=== PATIENT | male | born 1995 | race Caucasian/White ===

== ENCOUNTER 2017-06-27 20:55 | Emergency (ER) | payer BC ==
[2017-06-27 21:00] VITALS: RESP 16; TEMP 98.1; O2SAT 97
--- NOTE | 2017-06-27 21:25 | EDPHY ---
H & P Stated Complaint: ETOH - Personal History Current Tetanus/Diphtheria Vaccine: Yes Current Tetanus Diphtheria and Acellular Pertussis (TDAP): Yes - Medical/Surgical History Hx Asthma: No Hx Chronic Respiratory Disease: No Hx Diabetes: No Hx Cardiac Disease: No Hx Renal Disease: No Hx Cirrhosis: No Hx Alcoholism: No Hx HIV/AIDS: No Hx Splenectomy or Spleen Trauma: No Other PMH: ADHD - Social History Smoking Status: Never smoked Time Seen by Provider: 06/27/17 21:09 HPI/ROS: CHIEF COMPLAINT: "I'm drunk" HISTORY OF PRESENT ILLNESS: 21-year-old male arrives via ambulance after an [employer] business intelligence manager called 911 over concerns about the patient's ability to ambulate safely and he was getting off a bus. When I enter the room his sober girlfriend in sober friends are here to pick him up. States that he has been drinking alcohol day. No complaints of pain. No trauma. No fall. No headache. PRIMARY CARE PROVIDER: REVIEW OF SYSTEMS: A ten point review of systems was performed and is negative with the exception of the items mentioned in the HPI PAST MEDICAL/SURGICAL HISTORY: no anticoagulant use, no relevant medical/ surgical history SOCIAL HISTORY: Positive alcohol use today PHYSICAL EXAM 1) GENERAL: Well-developed, well-nourished, alert and oriented. Appears to be in no acute distress. Answering questions appropriately. 2) HEAD: Normocephalic, atraumatic 3) HEENT: Pupils equal, round, reactive to light bilaterally. Negative Horners. Nasopharynx, oropharynx, clear. No deformity or angulation of nose. No septal hematoma. No rhinorrhea. No oral trauma. Ears bilaterally with normal tympanic membranes. No hemotympanum. No fluid or blood in the external auditory canal. No raccoon eyes. No Torres sign. T 4) NECK: No cervical collar is on. Posterior cervical spine is nontender, no stepoff, no effusion. Full range of motion which does not elicit any midline cervical spine pain, no posterior midline tenderness, no step-off. ] 5) LUNGS: Clear to auscultation bilaterally, no wheezes, no rhonchi, no retractions. No obvious signs of trauma. No chest wall pain. No flaring, no grunting. Moving symmetrically. No crepitus. 6) HEART: Regular rate and rhythm, 7) ABDOMEN: No guarding, no rebound, no focal tenderness, no peritoneal signs, no signs of trauma, no ecchymosis 8) MUSCULOSKELETAL: Moving all extremities, no focal areas of tenderness, no obvious trauma. 9) BACK: No midline vertebral tenderness, no fluctuance, no step-off, no obvious trauma, no visual or palpable abnormality. 10) SKIN: No laceration. No abrasion DIFFERENTIAL DIAGNOSIS: [In no particular orderincluding but not limited to hypoglycemia, infectious process, electrolyte abnormality, head injury and intoxicants. (Trent Donaldson) Constitutional: Initial Vital Signs Temperature (C) 36.7 C 06/27/17 20:59 Heart Rate 89 06/27/17 20:59 Respiratory Rate 16 06/27/17 20:59 Blood Pressure 116/82 H 06/27/17 20:59 O2 Sat (%) 97 06/27/17 20:59 O2 Delivery Mode Room Air Allergies/Adverse Reactions: Milk Containing Products [dairy] Allergy (Verified 06/27/17 20:58) Home Medications: Medication Instructions Recorded Adderall 10 MG (*) 06/27/17 Ambien 06/27/17 Medical Decision Making ED Course/Re-evaluation: At 9:23 p.m. the patient has ambulated without assistance, clear speech pattern , awake alert oriented person place time events. He has a sober girlfriend is here to take him home, put him to bed. He is not on [facility] hold. He will be discharged. (Trent Donaldson) The patient was evaluated and managed by the physician imaging assistant. I have reviewed this chart and I agree with the findings and plan of care as documented , as indicated by my signature. I am the secondary supervising physician. ( Sharda Pisano) Departure - Departure Disposition: Home, Routine, Self-Care Clinical Impression: Alcohol use Condition: Good Instructions: Abuse of Alcohol (ED) Referrals: NANCY Colmenares,. [Clinic] - 2-3 days, call for appt.
[2017-06-27 21:34] VITALS: BP 112/60; PULSE 76
== END 2017-06-27 21:37 | disposition home or self-care (01) ==
DX: Z72.89 Other problems related to lifestyle (principal)